=== PATIENT | female | born 1960 | race Caucasian/White ===

== ENCOUNTER → 2016-09-26 | Day surgery (SDC) | payer OTHER ==
--- NOTE | 2016-09-30 15:54 | PATH ---
Surgical Pathology Report Patient Name: ABBY CARR [facility]. Rec. #: [id number] /Age/Gender: 1960 (Age: 56) / F Account: [id number] Location: [facility] Taken: 09/26/2016 Received: 09/26/2016 Reported: 09/30/2016 Physicians: Autumn Gómez M.D. Specimen(s) Received A: RIGHT BREAST SPECIMEN WITH CALCIFICATIONS B: RIGHT BREAST SPECIMEN WITHOUT CALCIFICATIONS Clinical History Mammographic findings: microcalcification, suspicious Final Diagnosis A. BREAST, RIGHT, WITH CALCIFICATIONS, STEREOTACTIC BIOPSY: DUCTAL CARCINOMA IN SITU (DCIS), CRIBRIFORM TYPE, INTERMEDIATE NUCLEAR GRADE WITH MODERATE NECROSIS AND ASSOCIATED CALCIFICATIONS. B. BREAST, RIGHT, WITHOUT CALCIFICATIONS, STEREOTACTIC BIOPSY: DCIS, CRIBRIFORM TYPE, INTERMEDIATE NUCLEAR GRADE. SMALL BENIGN LYMPH NODE. Results of ER and WV studies performed on block A at [facility] are as follows: ER (clone [id number] mouse monoclonal antibody by Leica): > 90 % nuclear staining with strong intensity (Positive). WV (clone16 mouse monoclonal antibody by Leica) : > 90 % nuclear staining with strong intensity (Positive). Positive and negative controls (internal if applicable) show appropriate results. Formalin fixation and cold ischemic times are within current ASCO/CAP recommendations for ER, WV and Her2 testing. Electronically Signed Kiana Graf M.D. Gross Description A. Received in formalin, labeled "right breast with calcifications," are 3 monahan-yellow, cylindrical portions of fibroadipose tissue ranging from 1.8-3.3 cm. in length and averaging 0.3 cm. in diameter. The specimen is submitted in toto in one cassette. B. Received in formalin labeled "right breast without calcifications," is a 2.2 x 1.8 x 0.3 cm aggregate of multiple monahan-yellow, irregular to cylindrical portions of fibroadipose tissue. The formalin is filtered and the specimen is entirely submitted in one cassette. Time to formalin fixation: 5 minutes Total formalin fixation time: Approximately 6 hours 09/27/201609/27/2016
== END | disposition home or self-care (01) ==
LOC: FMAMMOTONE 12:16
PROVIDERS: ATTEND Surgery Surgical Oncology
PROC: 0HBT3ZX Excision of Right Breast, Percutaneous Approach, Diagnostic (ICD-10-PCS; principal; 2016-09-26)
DX: D05.11 Intraductal carcinoma in situ of right breast (principal); R92.1 Mammographic calcification found on diagnostic imaging of breast; N64.89 Other specified disorders of breast
CPT/HCPCS: 19081; 87899; 88305-TC; 88342-TC; A4648

== ENCOUNTER 2016-10-31 07:15 | Day surgery (SDC) | payer OTHER ==
[2016-10-22 18:44] VITALS: BMI 24.6
--- NOTE | 2016-10-28 13:45 | HP ---
Admitting History and Physical - Primary Care Physician PCP: Arnaud Willams - Admission Chief Complaint: right breast cancer History of Present Illness: 56 yo female with family hx of breast cancer, was noted to have right upper outer calcifications on mammogram. Patient underwent stereotactic core bx on which was c/w intermediate grade DCIS. MRI done 10/03/2016 was c/w known cancer without evidence of multifocal or contralateral dz. MyRisk was negative. Patient is presenting for right breast WE with NL. History Source: Patient Limitations to Obtaining History: No Limitations - Past Medical History Cardiovascular: Yes: Hyperlipdemia Additional Past Medical History: h/o Jimi's - Smoking History Smoking history: Never smoked - Alcohol/Substance Use Hx Alcohol Use: Yes (rare) Home Medications - Allergies Allergies/Adverse Reactions: Allergies Allergy/AdvReac Type Severity Reaction Status Date / Time No Known Allergies Allergy Verified 10/22/16 18:34 - Home Medications Home Medications: Ambulatory Orders Aspirin [ASA -] 81 mg PO DAILY 10/22/16 Atorvastatin Calcium 20 mg PO HS 10/22/16 Cholecalciferol (Vitamin D3) [Vitamin D3 -] 1,000 unit PO DAILY 10/22/16 Family Disease History - Family Disease History Family Disease History: CA: Father (melanoma), Sister (at 49 ) Other Family History: maternal uncle-bladder cancer Review of Systems - Review of Systems Constitutional: reports: No Symptoms Cardiovascular: reports: No Symptoms Respiratory: reports: No Symptoms Physical Examination Constitutional: Yes: Well Nourished Breast(s): Yes: Other (no suspiciious palpable masses or adenopathy noted bilaterally) Problem List - Problems (1) Ductal carcinoma in situ (DCIS) of right breast Assessment/Plan: Plan: right breast WE with NL Code(s): D05.11 - INTRADUCTAL CARCINOMA IN SITU OF RIGHT BREAST
[2016-10-31] MEDS ORDERED: KETOROLAC TROMETHAMINE 30 MG/1 ML VIAL IVPUSH PRN (09:49)
[2016-10-31] MEDS ORDERED: ONDANSETRON 4 MG/2 ML VIAL IVPB PRN (09:49)
[2016-10-31] MEDS ORDERED: DEXTROSE 5%-0.45% SALINE 1,000 ML IV SCH (10:00)
[2016-10-31] MEDS ORDERED: PROPOFOL 20 ML ONE ×2 (10:20)
[2016-10-31] MEDS ORDERED: MIDAZOLAM HCL 2 MG/2 ML SINGLE DOSE VIAL ONE (10:20)
[2016-10-31] MEDS ORDERED: GENTAMICIN SO4 80 MG/2 ML VIAL ONE (10:55)
[2016-10-31] MEDS ORDERED: ceFAZolin SODIUM 1 GM VIAL ONE ×2 (10:55→11:00)
[2016-10-31] MEDS ORDERED: DEXAMETHASONE SOD PHOSPHATE 4 MG/1 ML VIAL ONE (11:00)
[2016-10-31] MEDS ORDERED: ONDANSETRON 4 MG/2 ML VIAL ONE (11:00)
[2016-10-31] MEDS ORDERED: ePHEDrine SULFATE 50 MG/1 ML AMPULE ONE (11:00)
[2016-10-31] MEDS ORDERED: PROMETHAZINE HCL 25 MG/1 ML VIAL IVPUSH PRN (12:28)
[2016-10-31] MEDS ORDERED: ONDANSETRON 4 MG/2 ML VIAL IVPUSH PRN (12:28)
[2016-10-31] MEDS ORDERED: oxyCODONE HCL 5 MG TABLET PO PRN ×2 (12:28)
[2016-10-31] MEDS ORDERED: LACTATED RINGERS SOLUTION 1,000 ML IV SCH (12:30)
[2016-10-31] MEDS ORDERED: ONDANSETRON 4 MG/2 ML VIAL IVPUSH ONE (12:45)
--- NOTE | 2016-10-31 13:53 | OP ---
DATE OF OPERATION: 10/31/2016 PREOPERATIVE DIAGNOSIS: Right breast ductal carcinoma in situ. POSTOPERATIVE DIAGNOSIS: Right breast ductal carcinoma in situ. PROCEDURE PERFORMED: Right breast partial mastectomy with mammographic needle localization, with reduction mastopexy and partial tissue transfer closure by Plastic Surgery. PRIMARY SURGEON: Loki Ruiz M.D. COOKING TEACHER: SHONNA Langley The primary physician for the reduction mastopexy and tissue transfer is Dr. Loki Padron, with his assistant teacher primary SHONNA Eldridge. COMPLICATIONS: There were no complications. ANESTHESIA: General laryngeal mask airway anesthesia. INDICATIONS: Briefly, the patient is a 56-year-old postmenopausal white female with a family history in her sister, who had breast cancer at age 49. The patient had a couple of left breast biopsies in the past, which have been benign. She has a history of bilateral augmentation implants in 1994. She was found to have some calcifications in the upper outer aspect of the right breast on mammography and underwent a stereotactic biopsy in September 2016, showing intermediate grade DCIS. MRI showed localized disease. The patient was advised on undergoing a wide excision, and was advised to see Plastic Surgery preoperatively for partial removal of the capsule and repair. The patient was seen by Plastic Surgery and was planned for the partial mastectomy with a reduction mastopexy, partial tissue transfer closure and repair of capsule. DESCRIPTION OF PROCEDURE: The patient was brought in for the surgery on October 31, 2016. She first underwent a mammographic needle localization of the clip in the right breast and was marked preoperatively by the plastic surgeon, and signed informed consent and site verification was made. She was brought into the operating room and laid on the OR table in the supine position. Venodynes were placed on the lower extremities. She received 1 g of Ancef prior to incision. Both breasts were prepped and draped in the usual fashion, with the wire prepped in the field. She was given general laryngeal mask airway anesthesia. The patient first had the reduction pattern incision made by Plastic Surgery. Then we used that incision to perform the wide excision around the lateral aspect of the right breast, with the specimen removed with the wire in the middle of the specimen all the way down to the pectoralis major muscle. The specimen was oriented with a long lateral suture and a short superior suture. Specimen radiograph showed removal of the clip in question. Separate margins were taken by taking a deep margin, removing muscle as well as the capsule on the deep end of the specimen. This was marked with a suture to lois the biopsy cavity side. Separate margins were then taken on the superior, inferior, medial, lateral and anterior aspects, with sutures marking the biopsy cavity side again. Hemostasis was achieved. At this point Dr. Padron became the primary surgeon and performed a repair of the capsule by suturing in a piece of AlloDerm to fix the capsular defect. At this point the reduction mastopexy was performed with the partial tissue transfer closure, again, to be dictated separately by Dr. Padron. All wounds will be closed by Plastic Surgery. The patient tolerated the procedure well. Estimated blood loss for the procedure was only about 20 mL. She was placed in a surgical bra postoperatively. The laryngeal mask airway tube was removed at the end of the case. The patient will be recovered and be discharged home the same day once discharge criteria are met. She is to follow up in the office in 1 week for a formal wound pathology check. Again, all sponge and needle counts were correct at the end of the case. LOKI RUIZ M.D. [id number]
[2016-10-31 13:59] VITALS: TEMP 97.8
[2016-10-31 16:04] VITALS: BP 128/62; PULSE 82
--- NOTE | 2016-11-01 11:00 | OP ---
DATE OF OPERATION: 10/31/2016 SURGEON: Arnaud Padron MD [employer]HICLE OPERATOR SURGEON: Jazmyn Castaneda PA-C PREOPERATIVE DIAGNOSES: 1. Right breast cancer. 2. Acquired chest wall deformity post mastectomy. POSTOPERATIVE DIAGNOSES: 1. Right breast cancer. 2. Acquired chest wall deformity post mastectomy. OPERATIVE PROCEDURE: 1. Right breast reconstruction utilizing other technique. 2. Capsulectomy, removal of capsule, and replacement with acellular dermal matrix AlloDerm. OPERATIVE INDICATION: Patient is a young woman who was brought to the operating room by Dr. Arnaud Willams for definitive procedure for breast cancer. The procedure by him will be dictated under separate cover. The reconstruction was planned as a combined procedure for reconstruction with other technique including patterned reduction of skin envelope and the above procedures. The risks and benefits of surgical versus nonsurgical alternatives as well as the material complications including no surgery were described to the patient preoperatively. Because of the postoperative radiation therapy required, she agreed to the planned procedure. OPERATIVE PROCEDURE IN DETAIL: Patient was taken to the operating room, and after induction of general anesthesia in supine position, both arms were extended and padded. Venodyne boots were placed. The entire chest wall was painted with ChloraPrep solution over its entire extent, and the markings for the preoperative outline of the reconstruction were reconfirmed on the table. After placement of sterile drapes in the usual fashion and timeout, attention was turned to the breasts. A circumareolar incision around a number 42 nipple-areolar cutter on the right breast was planned. Next, 1% local lidocaine anesthesia with 1:100,000 epinephrine was injected into this area, and then, an incision was made around the nipple-areolar cutter on the right breast and also in the pattern drawn circumareolar fashion. The area was then de-epithelialized according to the pattern for approach for Dr. Willams. I then turned the procedure to Dr. Willams, and he will dictate this under separate cover. Upon completion of the extirpation, attention was turned to the large defect in the chest wall area. A block of tissue had been removed from the lateral part of the breast, and I began the procedure by taking a deep margin, by incising the pectoralis muscle and capsule in its entirety in the lateral two-thirds of the chest wall. This block of tissue was removed and sent for pathologic diagnosis for margins. After completion of the procedure at this point, copious irrigation was performed. The implant was seen within the retropectoral pocket and seen to be in upside-down position. This was corrected and flipped over upon itself, giving contour, and then, an AlloDerm sheet of contour-perforated, medium-sized AlloDerm was brought into the field after sterile hydration and soaking with triple antibiotics. At this point, the sheet was sutured beneath the pectoralis muscle over the implant itself to protect it from radiation and then tacked into position in multiple locations using 2-0 Vicryl sutures along the material and into the pectoralis major muscle. Once the reconstruction was carried out, good shape and contour were seen of the reconstructed deep margins, and then, an advancement flap was created on the breast. An incision was made around in a counterclockwise fashion along the breast, and the breast on the medial side was rotated into position, filling the upper pole and lateral poles of the breast. These advancement flaps of the breasts were sutured using 2-0 Vicryl sutures in multiple layers, advancing and closing the breast upon itself. The skin was then rotated in the opposite direction and advanced and closed in a circumareolar fashion and then imbricated on the lower pole in a vertical fashion. This tissue rearrangement and reconstruction with other technique was carried out over the breast itself for reconstructive purposes. Copious irrigation and hemostasis were again obtained in multiple layers. The second layers of suture were also used, 3-0 Biosyn in a deep dermal fashion and a subcuticular suture with 4-0 Biosyn. Dry sterile dressings were placed over the wounds with Dermabond and Steri-Strips. Good shape and contour were seen on the breast reconstruction. The patient was placed into a compression dressing with a Surgi-Bra. She was awakened, extubated, and transferred to recovery room in satisfactory condition. ARNAUD PADRON M.D. [id number]
--- NOTE | 2016-11-05 16:18 | PATH ---
Surgical Pathology Report Patient Name: ABBY CARR [facility]. Rec. #: [id number] /Age/Gender: 1960 (Age: 56) / F Account: [id number] Location: [facility] Taken: 10/31/2016 Received: 10/31/2016 Reported: 11/05/2016 Physicians: Arnaud Willams M.D. Specimen(s) Received A: RIGHT BREAST WIDE EXCISION B: RIGHT BREAST DEEP MARGIN C: RIGHT BREAST SUPERIOR MARGIN D: RIGHT BREAST INFERIOR MARGIN E: RIGHT BREAST LATERAL MARGIN F: RIGHT BREAST ANTERIOR MARGIN G: RIGHT BREAST MEDIAL MARGIN Clinical History Right breast DCIS Final Diagnosis A. BREAST, RIGHT, WIDE EXCISION: DUCTAL CARCINOMA IN SITU (DCIS), CRIBRIFORM, SOLID, MICROPAPILLARY AND PAPILLARY TYPE, INTERMEDIATE NUCLEAR GRADE WITH FOCAL NECROSIS. DCIS IS PRESENT IN FIVE OF ELEVEN SLIDES (5/11), WITH THE LARGEST CONTIGUOUS FOCUS OF DCIS SPANNING 5 MM IN GREATEST DIMENSION, MICROSCOPICALLY. DCIS IS CLOSE TO (< 1 MM) THE ANTERIOR MARGIN AND AT 1 MM FROM THE LATERAL MARGIN. (SEE SPECIMENS B-G FINAL MARGINS). REMAINING BREAST TISSUE SHOWS FLORID USUAL AND PAPILLARY DUCTAL HYPERPLASIA WITH APOCRINE METAPLASIA, INTRADUCTAL PAPILLOMAS AND RADIAL SCAR. PRIOR BIOPSY SITE CHANGES ARE PRESENT. PATHOLOGIC STAGE (pTNM): pTis (DCIS) pNx. SEE ALSO DCIS CASE SUMMARY BELOW. B. BREAST, RIGHT, DEEP MARGIN, EXCISION: SKELETAL MUSCLE AND FIBROADIPOSE TISSUE; NEGATIVE FOR CARCINOMA. C. BREAST, RIGHT, SUPERIOR MARGIN, EXCISION: BENIGN BREAST TISSUE. D. BREAST, RIGHT, INFERIOR MARGIN, EXCISION: BENIGN BREAST TISSUE. E. BREAST, RIGHT, LATERAL MARGIN, EXCISION: BENIGN BREAST TISSUE SHOWING FOCAL PRIOR BIOPSY SITE CHANGES. F. BREAST, RIGHT, ANTERIOR MARGIN, EXCISION: BENIGN BREAST TISSUE. G. BREAST, RIGHT, MEDIAL MARGIN, EXCISION: BENIGN BREAST TISSUE SHOWING INTRADUCTAL PAPILLOMA AND USUAL DUCTAL HYPERPLASIA (UDH). Comments DCIS of Breast: Surgical Pathology Cancer Case Summary Based on AJCC/UICC TNM, 7th edition Procedure _X_ Excision with image-guided localization Specimen Laterality _X_ Right Estimated size (extent) of DCIS (greatest dimension using gross and microscopic evaluation): at least 5 mm and: Number of blocks with DCIS: 5 Number of blocks examined: 11 Nuclear Grade _X_ Grade II (intermediate) Necrosis _X_ Present, focal (small foci or single cell necrosis) Microcalcifications _X_ Present in both DCIS and non-neoplastic tissue (present in DCIS in prior core biopsy [id number]) Margins _X_ Margin(s) uninvolved by DCIS Distance from closest margin: DCIS is < 1mm from the anterior margin and at 1 mm from the lateral margin in wide excision A. Final anterior (F) and lateral (E) margins ae negative for DCIS. Pathologic Staging (pTNM) Primary Tumor (pT) _X_ pTis (DCIS): Ductal carcinoma in situ Biomarker Studies Results of ER and VA studies performed on or prior biopsy ([id number]) at [facility] are as follows: ER (clone [id number] mouse monoclonal antibody by Leica) : >90 % nuclear staining with strong intensity (Positive). VA (clone16 mouse monoclonal antibody by Leica): >90 % nuclear staining with strong intensity (Positive). Electronically Signed Kiana Graf M.D. Gross Description A. Received in formalin, labeled "right breast wide excision," is a 5.7 x 4.8 x 2.4 cm. monahan-yellow, irregular, portion of fibroadipose tissue with a needle localization wire present. There is a short suture marking the superior aspect and a long suture marking the lateral aspect, per the surgeon. There is no skin present. The specimen is inked as follows: superior and lateral blue; inferior green; medial yellow; anterior red; deep black. The specimen is serially sectioned from superior to inferior. Sectioning reveals a 1.4 cm in greatest dimension hemorrhagic biopsy cavity surrounded by focally firm fibrous tissue. There is a 0.8 x 0.8 x 0.7 cm focus of firm fibrous tissue separate from the biopsy cavity, 0.5 cm from the lateral margin. No definite mass is identified. Pheresis Nurse sections are submitted in 11 cassettes as follows: 1-5-biopsy cavity with surrounding fibrous tissue (each with anterior and deep margins); 3-1-dgonkfih focus of fibrous tissue (each with lateral, anterior and deep margins); 9-medial margin; 10-inferior margin; 11-superior margin. Time to formalin fixation: not given Total formalin fixation time: Approximately 31 hours B. Received in formalin labeled "right breast deep margin," is a 1.7 x 1.6 x 0.6 cm irregular portion of fibroadipose tissue with a suture marking the biopsy cavity side, per the surgeon. The new margin is inked black and the specimen is serially sectioned. The specimen is entirely submitted in 2 cassettes. C. Received in formalin labeled "left breast superior margin," is a 2.1 x 1.1 x 0.5 cm irregular portion of fibroadipose tissue with a suture marking the biopsy cavity side, per the surgeon. The new margin is inked black and the specimen is serially sectioned. The specimen is entirely submitted in 2 cassettes. D. Received in formalin labeled "right breast inferior margin," is a 2.0 x 1.5 x 0.6 cm irregular portion of fibroadipose tissue with a suture marking the biopsy cavity side, per the surgeon. The new margin is inked black and the specimen is serially sectioned. The specimen is entirely submitted in 2 cassettes. E. Received in formalin labeled "right breast lateral margin," is a 2.3 x 1.3 x 0.7 cm irregular portion of fibroadipose tissue with a suture marking the biopsy cavity side, per the surgeon. The new margin is inked black and the specimen is serially sectioned. The specimen is entirely submitted in 2 cassettes. F. Received in formalin labeled "right breast anterior margin," is a 1.8 x 1.6 x 0.7 cm irregular portion of fibroadipose tissue with a suture marking the biopsy cavity side, per the surgeon. The new margin is inked black and the specimen is serially sectioned. The specimen is entirely submitted in 2 cassettes. G. Received in formalin labeled "right breast medial margin," is a 2.7 x 1.9 x 0.8 cm irregular portion of fibroadipose tissue with a suture marking the biopsy cavity side, per the surgeon. The new margin is inked black and the specimen is serially sectioned. The specimen is entirely submitted in 3 cassettes. 11/01/2016 saudi11/01/2016
== END 2016-10-31 16:06 | disposition home or self-care (01) ==
LOC: FASU 07:15
PROVIDERS: ATTEND Surgery Surgical Oncology
PROC: [UNRECOGNIZED PROCEDURE] (2016-10-31)
PROC: 0HWT0JZ Revision of Synthetic Substitute in Right Breast, Open Approach (ICD-10-PCS; 2016-10-31)
PROC: 0HBT0ZZ Excision of Right Breast, Open Approach (ICD-10-PCS; principal; 2016-10-31 10:51)
PROC: 0HRT07Z Replacement of Right Breast with Autologous Tissue Substitute, Open Approach (ICD-10-PCS; 2016-10-31 10:51)
DX: D05.11 Intraductal carcinoma in situ of right breast (principal); M95.4 Acquired deformity of chest and rib; Z80.3 Family history of malignant neoplasm of breast
CPT/HCPCS: 19281; 88307-TC; 94760